=== PATIENT | female | born 1980 | race Caucasian/White ===

== ENCOUNTER 2017-08-04 03:31 | Inpatient (IN) | payer SELFPAY ==
[~2017-08-04] VITALS: Ht 157.5 cm; Wt 93.0 kg
--- NOTE | ~2017-08-04 | HC ---
[facility] [place] [address] CONSULTATION Name: ELIZABETH BOWDENQUEZCASA Room #: 423-1 [facility] IN M.R.#: [id number] Admission: 08/04/17 Attend Phys: Lionel Cantrell MD Discharge: 08/09/17 Date of : 76 Report #: [id number] THIS REPORT FOR: //name// CC: Lionel Cantrell [facility] physician/PCP DATE OF SERVICE: 08/04/2017 REFERRAL PHYSICIAN: Dr. Hogan. REASON FOR REFERRAL: Dyspnea. HISTORY OF PRESENT ILLNESS: The patient is a 37-year-old female who presented to the Emergency Room with dyspnea. A pulmonary consultation was requested. The patient does not speak Lao, but she is able to say answer yes or no. She states that she has been ill for the last 2 days complaining of myalgias, chills, nausea, vomiting, diarrhea. She was sick about a week earlier where she was seen at [facility]. Otherwise, no recent chest pain, hemoptysis. PAST MEDICAL HISTORY: Otherwise, unremarkable. ALLERGIES: None noted. HOME MEDICATIONS: None. FAMILY HISTORY: Unremarkable. SOCIAL HISTORY: Denies any tobacco or alcohol use. REVIEW OF SYSTEMS: As mentioned above, otherwise 10-point system review negative. PHYSICAL EXAMINATION: GENERAL: She is awake, alert, in no apparent distress. VITAL SIGNS: Temperature is 98 degrees Fahrenheit, pulse is 90, respiratory rate is 18, blood pressure 118/74 mmHg, saturation 94%. HEENT: Normocephalic, atraumatic. NECK: Supple, without any lymphadenopathy or thyromegaly. CHEST: Breath sounds are clear without any rales or wheezes. CARDIOVASCULAR: Normal S1, S2. There are no murmurs or gallop. There is no JVD. There is no carotid bruit. Pulses are 2+/4+ bilaterally. ABDOMEN: Soft, nontender, no organomegaly or masses felt. [facility] [address] [place] [address] CONSULTATION Name: ELIZABETH SOUSACASA Room #: [address] [place] [address] [place] [facility].#: [id number] Admission: 08/04/17 Attend Phys: Lionel Cantrell MD Discharge: 08/09/17 Date of : 76 Report #: [id number] GENITOURINARY: Deferred. RECTAL: Deferred. EXTREMITIES: There is no edema, cyanosis or clubbing. LABORATORY DATA: Chest x-ray is clear except for mild subsegmental atelectasis in the right lower lobe, left lower lobe. Influenza A and B is negative. Procalcitonin level was 6.4. Electrolytes unremarkable except for sodium 135. Creatinine is normal; initially, it was 1.4. Liver enzymes are moderately elevated. WBC 20,200 with significant bandemia. Hemoglobin is 15.9, platelets are normal. Arterial blood gas revealed pH 7.44, pCO2 32, pO2 66 on room air. IMPRESSION: A 37-year-old female with approximately several day history of chills, myalgias. She has leukocytosis along with bandemia. Procalcitonin level was elevated. Liver enzyme level is elevated. Chest x-ray is grossly unremarkable other than atelectasis. The patient likely has a component of viral syndrome. No evidence of overt pneumonia, though cannot rule out early onset lower respiratory tract infection. Agree with broad spectrum antibiotics, supportive care. DVT and GI prophylaxis recommended. We will follow up with her closely regarding possible worsening sepsis. Follow up chest x-ray. Thank you for this consultation. <ELECTRONICALLY SIGNED> By: Billy Rubio MD 08/10/17 1617 [id number] [id number] Billy Rubio MD /nt
--- NOTE | ~2017-08-04 | HC ---
[facility] [place] [address] CONSULTATION Name: CASA MANRIQUEZ Room #: 423-1 ADM IN M.R.#: [id number] Admission: 08/04/17 Attend Phys: Lionel Cantrell MD Discharge: Date of : 76 Report #: [id number] THIS REPORT FOR: //name// CC: Lionel Cantrell [facility] physician/PCP REASON FOR CONSULTATION: I was asked to evaluate concerning fever, sepsis, and pneumonia. HISTORY OF PRESENT ILLNESS: The patient is a 37-year-old Mongolian speaking woman with a 5-day history of increasing cough, nausea, vomiting, fever, chills, and myalgias. Seen last week at [facility], given oral medications. Unclear if she was on antibiotic. Did not improve and became more short of breath with some substernal chest discomfort. She does have underlying diabetes, but has been on no medications for this. She has had no travel. She lives with her who has not been ill. No children. Does not work outside the home. REVIEW OF SYSTEMS: Notes no hemoptysis, headache, pharyngitis symptoms, diarrhea, dysuria, or frequency. No rash. Has arthralgias and myalgias. Menstrual period last week. ALLERGIES: None known. MEDICATIONS: None prior to admission, now was given azithromycin, ceftriaxone, Levaquin and vancomycin in the emergency room. PAST MEDICAL HISTORY: Otherwise, unremarkable other than the above. FAMILY HISTORY: Noncontributory. SOCIAL HISTORY: Nonsmoker, no significant alcohol intake. PHYSICAL EXAMINATION: VITAL SIGNS: Currently afebrile, hemodynamically stable. In the emergency room, she was given IV fluids. She has peripheral IVs in place. HEENT: Unremarkable. GENERAL: She appeared fatigued and ill. Obese. SKIN: Unremarkable. LYMPH: Unremarkable. HEENT: Unremarkable. NECK: Supple. LUNGS: Crackles heard in the bases bilaterally. HEART: Regular, without murmur. ABDOMEN: Soft, nontender, no hepatosplenomegaly or mass. EXTREMITIES: Unremarkable. LABORATORY STUDIES: Room air saturation was 95% with an ABG of pO2 66, pCO2 32, [address] [address] CONSULTATION Name: ELIZABETH CASA SOUSA Room #: 423-1 ADM IN [facility]#: [id number] Admission: 08/04/17 Attend Phys: Lionel Cantrell MD Discharge: Date of : 76 Report #: [id number] pH 7.4. Sodium 135, potassium 3.8, bicarbonate 22, creatinine 0.9, blood glucose 340, ALT 184, AST 253, alkaline phosphatase 326, bilirubin 0.9, lactate 2.2. Procalcitonin 6.6. Hemoglobin 15.9, platelet count 275,000, WBC 20.2, 54% segs, 37% bands. Urinalysis is pending. Blood cultures are pending. Influenza antigen negative. Sputum is pending. Chest x-ray, bilateral lower lobe atelectasis with infiltrates, most predominant in the right lobe. IMPRESSION: A 37-year-old with diabetes, presents with lower respiratory tract infection symptoms for the past 5 days. I am suspecting influenza likely. She also has evidence of hepatitis. This will need further evaluation as well. She has leukocytosis with marked left shift. She has acute renal failure with hyponatremia and hypokalemia. She has a lactic acidosis. RECOMMENDATION: We will continue with antibiotic therapy for community-acquired pneumonia. Screen for bacterial pathogens and influenza. Also, need evaluation of her liver and gallbladder. She was not tender in the right upper quadrant at initial evaluation. We will hydrate and control blood glucose levels. We will determine final treatment program pending further studies. <ELECTRONICALLY SIGNED> By: Anton Hightower MD 08/05/17 1101 1109 1237 Anton Hightower MD /nt
--- NOTE | ~2017-08-04 | EKG ---
[address] [email or web address] [address] ELECTROCARDIOGRAM REPORT Name: ELIZABETH CASA SOUSA Room #: 423-1 ADM IN M.R.#: [id number] Admission: 08/04/17 Attend Phys: Lionel Cantrell MD Discharge: Date of : 76 Report #: [id number] THIS REPORT FOR: //name// [facility] ED Test Date: 2017-08-04 Test Time: 03:39:35 Pat Name: CASA SOUSA Department: Room: [facility] Gender: F Detacker: 89 : 1980 Requested By: Finesse Gu Order Number: [id number] MD: Ralph Larose Measurements Intervals Fults Rate: 112 P: 31 MI: 144 QRS: 57 QRSD: 84 T: -3 QT: 332 QTc: 453 Interpretive Statements Sinus tachycardia Poor R wave progression No previous ECG available for comparison Electronically Signed On 08-07-2017 13:13:48 CDT by Ralph Larose [email or web address] <ELECTRONICALLY SIGNED> By: Ralph Larose MD, [facility] 08/07/17 1313 0339 0339 Ralph Larose MD, FACC /EPI
[2017-08-04 03:57] VITALS: BP 98/61
[2017-08-04 04:06] LABS: MCHC 34.4 g/dL (28.0-37.0)
[2017-08-04 04:08] LABS: HEMATOCRIT 46.3 % (37.0-47.0); HEMOGLOBIN 15.9 gm/dL (12.0-15.0); MCH 29.2 pg (26.0-34.0); MCV 84.8 fL (80.0-100.0); PLATELET COUNT 275 thou/uL (150-400); RBC 5.47 mil/uL (4.20-5.00); RDW 13.5 % (10.5-14.5); WBC 20.2 thou/uL (4.0-11.0)
[2017-08-04 04:10] LABS: CALCIUM 8.9 mg/dL (8.5-10.1); CREATININE 1.4 mg/dL (0.6-1.0); POTASSIUM 3.1 mmol/L (3.5-5.1)
[2017-08-04 04:52] LABS: ABSOLUTE NEUTROPHILS 18.4 thou/uL (1.4-8.2); ATYPICAL LYMPHS 1 %; METAMYELOCYTES 1 %
[2017-08-04 05:51] VITALS: BP 108/51
[2017-08-04 06:41] LABS: APTT 27.7 Seconds (24.5-32.8); FIBRINOGEN 321.5 mg/dL (210-360); PROTIME 9.7 Seconds (9.3-11.4)
[2017-08-04 06:44] LABS: ALBUMIN 3.3 g/dL (3.4-5.0); DIRECT BILIRUBIN 0.4 mg/dL (<0.1-0.3); TOTAL BILIRUBIN 0.9 mg/dL (<0.1-1.0); TOTAL PROTEIN 7.4 g/dL (6.4-8.2)
[2017-08-04 08:10] VITALS: BP 118/74
[2017-08-04 08:42] VITALS: BP 121/77
[2017-08-04 09:46] LABS: BE(vivo) -1.5 mmol/L (-2 to +3); HCO3 21.7 mmol/L (22.0-26.0); PCO2 32.6 mmHg (35.0-45.0); PO2 66.8 mmHg (80.0-100.0); pH 7.442 (7.360-7.450); sO2 94.2 % (92.0-98.0)
[2017-08-04 09:51] LABS: CREATININE 0.9 mg/dL (0.6-1.0); POTASSIUM 3.8 mmol/L (3.5-5.1)
[2017-08-04 14:29] LABS: CALCIUM 7.8 mg/dL (8.5-10.1); CREATININE 0.9 mg/dL (0.6-1.0); POTASSIUM 3.8 mmol/L (3.5-5.1)
[2017-08-04 15:52] VITALS: BP 121/90
[2017-08-04 17:15] LABS: CREATININE 0.8 mg/dL (0.6-1.0)
[2017-08-04 22:21] LABS: URINE BILIRUBIN NEGATIVE (Negative); URINE BLOOD TRACE (Negative); URINE CLARITY CLEAR; URINE COLOR YELLOW; URINE GLUCOSE-RANDOM* 2+ (Negative); URINE KETONES 1+ (Negative); URINE LEUKOCYTES-REFLEX NEGATIVE (Negative); URINE NITRITE-REFLEX NEGATIVE (Negative); URINE PROTEIN (DIPSTICK) TRACE (Negative); URINE SPECIFIC GRAVITY <= 1.005 (1.005-1.035)
[2017-08-04 22:25] VITALS: BP 118/77
[2017-08-05 04:01] VITALS: BP 96/51
[2017-08-05 04:07] LABS: HAV IgM AB (ANTI-HAV IgM) Negative (Negative); HEP B SURFACE Ab(ANTI-HBS Non Reactive (()); HEPATITIS B SURFACE AG Negative (Negative); HEPATITIS C VIRUS AB <0.1 (0.0-0.9); HIV ANTIBODY Non Reactive (Non Reactive)
[2017-08-05 06:42] LABS: ABSOLUTE NEUTROPHILS 2.1 thou/uL (1.4-8.2); BASOPHILS 0.2 % (0.0-2.0); EOSINOPHILS 1.1 % (0.0-3.0); HEMATOCRIT 35.6 % (37.0-47.0); LYMPHOCYTES 54.1 % (24.0-44.0); MCH 28.8 pg (26.0-34.0); MCHC 33.9 g/dL (28.0-37.0); MCV 84.8 fL (80.0-100.0); MONOCYTES 7.4 % (1.0-8.0); PLATELET COUNT 209 thou/uL (150-400); POLYS 37.2 % (36.0-66.0); RDW 13.6 % (10.5-14.5); WBC 5.6 thou/uL (4.0-11.0)
[2017-08-05 06:53] LABS: HEMOGLOBIN 12.1 gm/dL (12.0-15.0)
[2017-08-05 08:27] VITALS: BP 121/55
[2017-08-05 15:36] VITALS: BP 116/81
[2017-08-05 21:25] VITALS: BP 149/82
[2017-08-05 22:35] VITALS: BP 140/83
[2017-08-06] VITALS: BP 138/78
[2017-08-06 04:29] VITALS: BP 125/69
[2017-08-06 05:27] LABS: HEMATOCRIT 35.2 % (37.0-47.0); MCH 29.1 pg (26.0-34.0); MCHC 34.1 g/dL (28.0-37.0); MCV 85.4 fL (80.0-100.0); PLATELET COUNT 253 thou/uL (150-400); RBC 4.11 mil/uL (4.20-5.00); RDW 13.7 % (10.5-14.5); WBC 6.8 thou/uL (4.0-11.0)
[2017-08-06 06:02] LABS: ALBUMIN 2.4 g/dL (3.4-5.0); CALCIUM 7.5 mg/dL (8.5-10.1); CREATININE 0.6 mg/dL (0.6-1.0); POTASSIUM 3.6 mmol/L (3.5-5.1); TOTAL BILIRUBIN 0.3 mg/dL (<0.1-1.0); TOTAL PROTEIN 5.7 g/dL (6.4-8.2)
[2017-08-06 07:08] LABS: ABSOLUTE NEUTROPHILS 2.9 thou/uL (1.4-8.2)
[2017-08-06 07:09] LABS: ANISOCYTOSIS 1+
[2017-08-06 08:28] VITALS: BP 145/82
[2017-08-06 20:49] VITALS: BP 166/82
[2017-08-07 00:41] VITALS: BP 160/88
[2017-08-07 04:03] VITALS: BP 135/58
[2017-08-07 05:29] LABS: HEMATOCRIT 37.4 % (37.0-47.0); HEMOGLOBIN 12.8 gm/dL (12.0-15.0); MCHC 34.3 g/dL (28.0-37.0); MCV 84.7 fL (80.0-100.0); RBC 4.42 mil/uL (4.20-5.00); RDW 13.1 % (10.5-14.5); WBC 7.4 thou/uL (4.0-11.0)
[2017-08-07 05:38] LABS: ALBUMIN 2.5 g/dL (3.4-5.0); CALCIUM 8.7 mg/dL (8.5-10.1); CREATININE 0.7 mg/dL (0.6-1.0); POTASSIUM 3.3 mmol/L (3.5-5.1); TOTAL BILIRUBIN 0.4 mg/dL (<0.1-1.0)
[2017-08-07 07:12] VITALS: BP 154/80
[2017-08-07 11:06] LABS: GLYCOHEMOGLOBIN (HGB A1C) 11.8 % (4.8-5.6)
[2017-08-07 15:25] VITALS: BP 140/79
[2017-08-07 20:30] VITALS: BP 161/85
[2017-08-08 05:33] LABS: HEMATOCRIT 39.1 % (37.0-47.0); HEMOGLOBIN 13.3 gm/dL (12.0-15.0); MCH 28.7 pg (26.0-34.0); MCHC 34.1 g/dL (28.0-37.0); MCV 84.3 fL (80.0-100.0); RBC 4.64 mil/uL (4.20-5.00); RDW 13.4 % (10.5-14.5); WBC 8.7 thou/uL (4.0-11.0)
[2017-08-08 05:55] LABS: ALBUMIN 2.7 g/dL (3.4-5.0); CALCIUM 8.7 mg/dL (8.5-10.1); CREATININE 0.6 mg/dL (0.6-1.0); POTASSIUM 3.5 mmol/L (3.5-5.1); TOTAL BILIRUBIN 0.5 mg/dL (<0.1-1.0); TOTAL PROTEIN 6.2 g/dL (6.4-8.2)
[2017-08-08 07:50] VITALS: BP 146/83
[2017-08-08 15:14] VITALS: BP 137/77
[2017-08-08 20:00] VITALS: BP 119/72
[2017-08-08 23:09] LABS: ADENOVIRUS Negative (Negative); INFLUENZA A Negative (Negative); INFLUENZA B Positive (Negative); METAPNEUMOVIRUS Negative (Negative); PARAINFLUENZA 1 Negative (Negative); PARAINFLUENZA 2 Negative (Negative); PARAINFLUENZA 3 Negative (Negative); RHINOVIRUS Negative (Negative); RSV A Negative (Negative); RSV B Negative (Negative)
[2017-08-09 04:30] VITALS: BP 132/67
[2017-08-09 07:09] VITALS: BP 145/93
[2017-08-09] MEDS ORDERED: CEFDINIR300 MG PO (09:44)
[2017-08-09] MEDS ORDERED: PANTOPRAZOLE SO40 M1 PO (09:45)
[2017-08-09] MEDS ORDERED: TYLENOL EXTRA500 MG PO (09:45)
[2017-08-09] MEDS ORDERED: AZITHROMYCIN 2250 MG PO (09:45)
[2017-08-09] MEDS ORDERED: GLUCOTROL5 MG PO (09:49)
[2017-08-09] MEDS ORDERED: METFORMIN HCL500 MG PO (09:49)
[2017-08-09 11:36] VITALS: BP 145/93
== END 2017-08-09 14:47 | disposition home or self-care (01) | DRG 871 ==
LOC: ER 03:31 → 4E 05:06 → EROBS 05:06 → 4E 05:51
PROVIDERS: Emergency Medicine; Hospitalist; Nurse Practitioner Family; Specialist
DX: A41.9 Sepsis, unspecified organism (principal); J18.1 Lobar pneumonia, unspecified organism; E87.1 Hypo-osmolality and hyponatremia; N17.9 Acute kidney failure, unspecified; R65.20 Severe sepsis without septic shock; E11.9 Type 2 diabetes mellitus without complications; J22 Unspecified acute lower respiratory infection; E87.6 Hypokalemia; E11.65 Type 2 diabetes mellitus with hyperglycemia; K75.9 Inflammatory liver disease, unspecified; K80.20 Calculus of gallbladder without cholecystitis without obstruction
CPT/HCPCS: 10783